=== PATIENT | female | born 1960 | race Caucasian/White ===

== ENCOUNTER 2022-06-23 08:26 | Emergency (ER) | payer BC ==
[~2022-06-23] VITALS: Ht 167.6 cm; Wt 59.0 kg
[2022-06-23 08:52] VITALS: BP 141/92
[2022-06-23 10:58] VITALS: BP 141/92
== END 2022-06-23 11:06 | disposition home or self-care (01) | DRG 563 ==
LOC: ED 08:26
PROC: 2W3DX1Z Immobilization of Left Lower Arm using Splint (ICD-10-PCS; principal; 2022-06-23)
DX: S52.502A Unspecified fracture of the lower end of left radius, initial encounter for closed fracture (principal); W19.XXXA Unspecified fall, initial encounter

== ENCOUNTER 2022-07-03 09:24 | Day surgery (SDC) | payer BC ==
[~2022-07-03] VITALS: Ht 167.6 cm; Wt 59.0 kg
[~2022-07-03 09:24] MED LIST: BIOTIN1 MG PO; CALCIUM280 MG PO; COLLAGE2 PO; VITAMIN B COMPL1 TAB PO
[2022-07-03 13:49] VITALS: BP 131/81
== END 2022-07-03 14:06 | disposition home or self-care (01) | DRG 512 ==
LOC: ORM 09:24
PROVIDERS: ATTEND Orthopaedic Surgery
PROC: 0PSJ04Z Reposition Left Radius with Internal Fixation Device, Open Approach (ICD-10-PCS; principal; 2022-07-03)
DX: S52.562A Barton's fracture of left radius, initial encounter for closed fracture (principal); W18.39XA Other fall on same level, initial encounter; Y93.69 Activity, other involving other sports and athletics played as a team or group
CPT/HCPCS: J0131